=== PATIENT | female | born 1985 | race Caucasian/White ===

== ENCOUNTER 2025-05-11 15:28 | Observation (INO) | payer OTHER, SELFPAY ==
[2025-05-11] VITALS (16 sets, daily range): BP systolic 97–127; BP diastolic 47–85; PULSE 51–110; RESP 12–20; TEMP 36.3–38.8; O2SAT 95–98; BMI 26.3; BMI 26.6
--- NOTE | 2025-05-11 15:51 | US_ITS ---
PROCEDURE: PELVIC (NON ) 05/11/2025 REASON FOR EXAM: CONCERN FOR RETAINED PRODUCTS, ENDOMETRITIS. 3 weeks. No bleeding per patient. TECHNIQUE: PELVIC (NON ). Transabdominal grayscale, color and spectral Doppler pelvic ultrasound. FINDINGS: ENDOMETRIUM: Homogeneous. Normal thickness of 7.3 mm. No abnormal endometrial color Doppler flow. No fluid or air in the endometrial cavity. UTERUS: Anteverted. Normal size and contour measuring 10.9 x 7.5 x 5.0 cm. No fibroid detected. CERVIX: Normal size and contour. RIGHT OVARY: Not visualized. LEFT OVARY: Normal size and appearance measuring 3.2 x 1.9 x 1.3 cm. Normal follicles. Normal blood flow. No adnexal mass. FREE FLUID: No free fluid. US/Pelvic (Non ) IMPRESSION: NORMAL TRANSABDOMINAL PELVIC ULTRASOUND. Reading Location: [id number]
[2025-05-11] MEDS: 0.9% Normal Saline (1000mL) 1,000 ML 999 ML IV (15:52)
--- NOTE | 2025-05-11 15:55 | RAD_ITS ---
PROCEDURE: CHEST 1 VIEW (PORTABLE) 05/11/2025 REASON FOR EXAM: ABDOMINAL PAIN TECHNIQUE: AP portable upright chest. COMPARISON: None. RAD/Chest 1 View (Portable) IMPRESSION: Calcifications adjacent to the right humeral head greater tuberosity most likel y represent calcific tendinosis. No other significant osseous abnormality is seen. Lungs appear clear throughout. No pleural effusion or pneumothorax is seen. No evidence of pneumoperitoneum. The cardiomediastinal silhouette is within the normal range. No evidence of acute cardiopulmonary disease. Reading Location: [place] [id number]
[2025-05-11 16:11] LABS: Hematocrit 45.1 % (37-47); Hemoglobin 15.2 g/dL (12.0-15.0); Immature Granulocytes Count 0.050 X10^3/uL (0.0-0.0); Mean Corp Hgb Conc 33.7 g/dL (32-36); Mean Corpuscular Volume 84.8 fL (81-99); Mean Platelet Vol. 9.9 fl (6.2-12.0); NRBC Flagged by Analyzer 0 % (0-5); POSITIVE MORPHOLOGY YES; Platelet Count 212 K/mm3 (150-450); RBC Distribution Width CV 13.5 % (11.6-14.6); RBC Distribution Width SD 42.2 fl (35.1-43.9); Red Blood Count 5.32 M/mm3 (4.2-5.4); White Blood Count 12.3 K/mm3 (4.4-11.0)
--- NOTE | 2025-05-11 16:20 | CT_ITS ---
PROCEDURE: CT ABDOMEN/PELVIS W IV CONT ONLY 05/11/2025 REASON FOR EXAM: ABDOMINAL PAIN TECHNIQUE: CT ABDOMEN/PELVIS W IV CONT ONLY. Coronal and Sagittal reconstruction series were provided. CONTRAST: Isovue-300 VOLUME: 98 mL One or more dose reduction techniques were used (e.g., Automated exposure control, adjustment of the mA and/or kV according to patient size, use of iterative reconstruction technique. RADIATION DOSE SUMMARY: DLP: 772.3 mGycm COMPARISON: None. FINDINGS: Lung bases: Clear. Liver: No significant abnormality. Subcentimeter hypodense focus in the superior lateral right hepatic lobe is most likely a small benign cyst versus hemangioma. Gallbladder: Cholelithiasis. No pericholecystic inflammatory changes or ductal dilatation. Spleen: Normal in size and morphology. Pancreas: Unremarkable. Adrenals: Unremarkable. Kidneys: Normal, symmetric enhancement. No urolithiasis or hydronephrosis. Bladder: Underdistended, grossly unremarkable. Reproductive Organs: Mildly prominent size of the recently gravid uterus. Unremarkable left ovary.. Asymmetric prominent heterogeneous engorgement of the distal right gonadal vein, most likely reflecting venous congestion. Bowel: Dilated fluid-filled appendix identified in the right lower quadrant, with small dense fecalith at the appendix base, and prominent periappendiceal inflammatory fat stranding consistent with acute appendicitis. There is probable appendiceal microperforation seen on the coronal reformat image 45. No discrete drainable fluid collection/abscess, or pneumoperitoneum appreciated. Prominent fluid-filled segments of mid to distal small bowel without a discrete transition point, likely reactive enteritis versus regional ileitis. Fluid throughout the colon likely reflecting diarrhea, with no wall thickening. Lymph nodes: No suspicious lymph node enlargement. Vasculature: Normal course and caliber of the abdominal aorta and IVC. Superficial venous varicosities noted in the upper medial thigh/perineal soft tissues. Peritoneum / Retroperitoneum: Periappendiceal edema with trace free fluid tracking inferiorly into the pelvis. No drainable fluid collection, organized abscess, or pneumoperitoneum. Bones: No significant abnormality. CT/Abdomen/Pelvis W IV Cont ONLY IMPRESSION: Acute appendicitis, with probable perforation. Associated mild reactive region al distal small-bowel ileus versus enteritis. Fluid in the colon suggesting a diarrheal illness. Findings communicated to provider Connor Euceda 05/11/2025 at 3:45 p.m. 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 Reading Location: [id number]
--- NOTE | 2025-05-11 16:26 | EDS_ITS ---
HPI History of Present Illness Chief Complaint: Abd Pain Narrative Narrative: Chief complaint and HPI: Abdominal pain. History taken by patient as well as . 39-year-old female who is A0 presents for evaluation of abdominal pain. Patient is an Yarsanism female from [place]. She recently had a natural vaginal delivery in [place] approximately 3 weeks ago. No complications per the or delivery. states it was a long delivery for the patient consisting of about 12 hours. No large amount of bleeding. Patient states since the delivery she has had some vaginal bleeding. Denies any vaginal discharge. Yesterday began having lower abdominal pain that has progressively worsened. She has been taking Tylenol. She states she received natural herbs during delivery. She endorses fever, abdominal pain, nausea. Denies any shortness of breath or chest pain. No history of abdominal surgeries. Review of systems: See HPI Medications: As listed on the chart Allergies: As listed on the chart PFSH: Per chart Vital signs: As listed on the chart. Reviewed. Physical exam: Gen: A&O x3, unwell appearing Head: Normocephalic, atraumatic Eyes: No sclera icterus, conjunctiva clear ENT: White patches on her tongue that have been ongoing for several months. Does not scrape off as thrush. Moist mucous membranes Neck: Trachea midline, No JVD CV: Tachycardic, regular rhythm, no murmurs, no peripheral edema Resp: Lungs CTA BL, no w/r/c GI: Abd soft, non-distended, tender to palpation diffusely, + guarding, + rebound Pelvic: Normal external genitalia. + Vaginal bleeding. No obvious purulence. Cervix difficult to find and unable to be examined. Musc: Full ROM, no deformity Skin: Warm, dry Neuro: Alert, oriented, grossly intact, sensation intact Psych: Cooperative, appropriate mood and affect PFSH PFSH Medical History no medical history Home Medications ?Medication ?Instructions ?Recorded ?Last Taken ?Type NK 05/11/25 Unknown History Allergy/AdvReac Type Severity Reaction Status Date / Time No Known Allergies Allergy Verified 05/11/25 17:42 Family History no significant family his Surgical History no surgical history Social History Smoking Status: Never smoker EXAM Physical Exam Const Vital Signs: 05/11/25 15:29 05/11/25 16:27 05/11/25 16:55 Temperature 99.9 F H 99.9 F H 101.8 F H Temperature Source Oral Oral Oral Pulse Rate 110 H 97 Respiratory Rate 20 H 18 Blood Pressure 117/85 H 125/73 H Blood Pressure Mean 95 90 Pulse Ox 98 98 Oxygen Delivery Method Room Air Room Air 05/11/25 17:00 05/11/25 17:47 05/11/25 18:19 Temperature 101.8 F H 101.8 F H 101.8 F H Temperature Source Oral Pulse Rate 98 98 98 Respiratory Rate 18 18 18 Blood Pressure 127/73 H 127/73 H 127/73 H Blood Pressure Mean 91 91 Pulse Ox 98 98 98 Oxygen Delivery Method Room Air Room Air MDM MDM MDM Narrative Medical decision making narrative: 39-year-old female who is A0 presents for evaluation of abdominal pain. Patient is an Y[place]an[place] female from [place]. She recently had a natural vaginal delivery in [place] approximately 3 weeks ago. No complications per the or delivery. states it was a long delivery for the patient consisting of about 12 hours. No large amount of bleeding. Patient states since the delivery she has had some vaginal bleeding. Denies any vaginal discharge. Yesterday began having lower abdominal pain that has progressively worsened. On presentation, patient is unwell appearing. She is tachycardic and almost febrile with a temperature of 99.9. She has severe diffuse tenderness to the abdomen with guarding and rebound. Differential diagnosis includes but is not limited to endometritis, retained products of conception, appendicitis, pancreatitis, colitis, cholecystitis, UTI, pyelonephritis, STI. NS bolus, clindamycin, Unasyn, morphine, Zofran ordered for symptoms. Pelvic exam showed vaginal bleeding, I was unable to identify or visualize the cervix. Abdominal pain workup ordered including CT abdomen pelvis and transvaginal ultrasound. Given the tenderness of her abdomen, I did consult [facility] no doc on-call Dr. Alvarado. We have yet to obtain a call back. Chest x-ray without free air, pneumonia, effusion, cardiomegaly, pneumothorax. Radiology in agreement. CT abdomen pelvis shows acute appendicitis with probable perforation. Associated mild reactive regional distal small bowel ileus versus enteritis. Fluid in the colon suggesting a diarrheal illness. Mildly prominent size of the recent gravid uterus. Unremarkable left ovary. Asymmetric prominent or heterogeneous enlargement of the distal right gonadal vein, most likely reflecting venous congestion. This finding was personally relayed to me by radiology. Patient's symptoms are likely secondary to pancreatitis and not endometritis. The antibiotics patient did receive does cover for appendicitis. General surgery was consulted. I spoke with Dr. Samson to. Plan will be for the OR. He will evaluate the patient. CBC with mild leukocytosis of 12.5. Patient has hemoconcentration of 15.2. CMP relatively unremarkable. Lactic acid unremarkable. Lipase unremarkable. Serum negative. UA positive for blood which patient has vaginal bleeding. Negative for UTI. Pelvis ultrasound shows normal transabdominal pelvic ultrasound. Patient's and were updated of the results for acute appendicitis and the plan for OR. Patient was taken to the OR. Impression: 1. Acute appendicitis 2. Vaginal bleeding with recent vaginal delivery 3 weeks ago Lab Data Labs: Laboratory Results - last 24 hr 05/11/25 05/11/25 15:46 17:25 WBC 12.3 H RBC 5.32 Hgb 15.2 H Hct 45.1 MCV 84.8 MCH 28.6 MCHC 33.7 RDW Std Deviation 42.2 RDW Coeff of [place] 13.5 Plt Count 212 MPV 9.9 Immature Gran % (Auto) 0.400 Neut % (Auto) 86.9 H Lymph % (Auto) 10.6 L [place] % (Auto) 2.0 Eos % (Auto) 0.0 Baso % (Auto) 0.1 Absolute Neuts (auto) 10.7 H Absolute Lymphs (auto) 1.30 Nucleated RBC % 0 Differential Comment SCANNED Platelet Estimate ADEQUATE Sodium 133 Potassium 3.4 Chloride 95 L Carbon Dioxide 23.0 Anion Gap 15 BUN 8 Creatinine 0.72 Est GFR (MDRD) Non-Af 109 BUN/Creatinine Ratio 11.6 Glucose 102 H Lactic Acid 1.2 Calcium 9.1 Total Bilirubin 0.78 AST 17 ALT 15 Alkaline Phosphatase 125 H Total Protein 7.6 Albumin 4.2 Globulin 3.4 Albumin/Globulin Ratio 1.2 Lipase 13 Serum , Qual NEGATIVE Urine Color Straw Urine Clarity Clear Urine pH 7.0 Ur Specific [place] 1.005 Urine Protein 15 H Urine Glucose (UA) Normal Urine Ketones Negative Urine Occult Blood 250 H Urine Nitrite Negative Urine Bilirubin Negative Urine Urobilinogen Normal Ur Leukocyte Esterase Negative Radiography Diagnostic Testing: Clinical Impression(s) from Imaging Studies Pelvis Ultrasound 05/11/25 15:51 IMPRESSION: NORMAL TRANSABDOMINAL PELVIC ULTRASOUND. Reading Location: [facility] [place] Chest X-Ray 05/11/25 15:55 IMPRESSION: Calcifications adjacent to the right humeral head greater tuberosity most likely represent calcific tendinosis. No other significant osseous abnormality is seen. Lungs appear clear throughout. No pleural effusion or pneumothorax is seen. No evidence of pneumoperitoneum. The cardiomediastinal silhouette is within the normal range. No evidence of acute cardiopulmonary disease. Reading Location: [facility] Abdomen/Pelvis CT 05/11/25 16:20 IMPRESSION: Acute appendicitis, with probable perforation. Associated mild reactive regional distal small-bowel ileus versus enteritis. Fluid in the colon suggesting a diarrheal illness. Findings communicated to provider Connor Euceda 05/11/2025 at 3:45 p.m. 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 Reading Location: [facility] Discharge Plan Disposition Disposition: Acute Care Hospital [facility] Discharge Date/Time: 05/11/25 17:35
[2025-05-11 16:38] LABS: AST(SGOT) 17 U/L (<=31); Alanine Aminotransfer ALT/SGPT 15 U/L (<=34); Albumin, Serum 4.2 g/dL (3.5-5.0); Alkaline Phosphatase 125 U/L (35-104); Anion Gap 15 (5-15); BUN 8 mg/dL (4-19); BUN/Creat Ratio 11.6 RATIO (10-20); Calcium,Total 9.1 mg/dL (7.6-11.0); Carbon Dioxide 23.0 mmol/L (21.0-32.0); Chloride 95 mmol/L (98-108); Globulin 3.4 g/dL (2.2-4.2); Glucose 102 mg/dL (70-99); Lipase 13 U/L (13-75); Potassium 3.4 mmol/L (3.3-5.1)
[2025-05-11] MEDS: Ampicillin/Sulbactam 3 GM in 0.9% Normal Saline (100mL MB+) 100 ML IV (16:47)
[2025-05-11 16:58] LABS: Differential Indicated SCAN CRITERIA MET
[2025-05-11 17:14] LABS: Internal QC Validated? YES +Cl - CLEAR BKGD; Pregnancy, Serum, hCG Quali. NEGATIVE Negative; Record Kit Lot#, Serum Preg. 962302
[2025-05-11 17:31] LABS: Mucous, Urine 0 SEEN /hpf (<or=2+)
[2025-05-11 17:35] LABS: Color, Urine Straw (Yellow); Glucose, Dipstick Normal (Normal); Ketone-Dipstick Negative (Negative); Leukocyte Esterase-Dipstick Negative /ul (Negative); Nitrite-Dipstick Negative (Negative); Occult Blood-Urine 250 /ul (Negative); Protein-Dipstick 15 mg/dl (Negative); Specific Gravity, Urine 1.005 (1.002-1.030); Urine Bilirubin Dipstick Negative (Negative)
--- NOTE | 2025-05-11 17:45 | ED.RN ---
Report called to surgery
[2025-05-11] MEDS: Clindamycin 900 MG/50 ML BAG 75 MG IV (17:54)
--- NOTE | 2025-05-11 18:08 | HP.PCM.SX_ITS ---
HPI - General HPI Narrative FAUZIA BANG, is a 39 F who presents with abdominal pain that started yesterday morning. She says it started by feeling cramping and then spread and became worse today. She said she did vomit once yesterday. She does have nausea. She also has a fever today. She reports the pain is in her lower abdomen. PFSH Medical History no medical history Home Medications ?Medication ?Instructions ?Recorded ?Last Taken ?Type NK 05/11/25 Unknown History Allergy/AdvReac Type Severity Reaction Status Date / Time No Known Allergies Allergy Verified 05/11/25 17:42 Family History no significant family his Surgical History no surgical history Social History Smoking Status: Never smoker Vital Signs Vital Signs Vital Signs: 05/11/25 15:29 05/11/25 16:27 05/11/25 16:55 Temperature 99.9 F H 99.9 F H 101.8 F H Temperature Source Oral Oral Oral Pulse Rate 110 H 97 Respiratory Rate 20 H 18 Blood Pressure 117/85 H 125/73 H Blood Pressure Mean 95 90 Pulse Ox 98 98 Oxygen Delivery Method Room Air Room Air 05/11/25 17:00 05/11/25 17:47 Temperature 101.8 F H 101.8 F H Temperature Source Oral Pulse Rate 98 98 Respiratory Rate 18 18 Blood Pressure 127/73 H 127/73 H Blood Pressure Mean 91 91 Pulse Ox 98 98 Oxygen Delivery Method Room Air Physical Exam Const alert and oriented x3 HEENT normocephalic Eyes PERRL Resp normal respiratory effort and normal air movement Cardio regular rate and regular rhythm GI soft to palpation Palpation: tender LLQ and RLQ Extremity normal to inspection Results Lab / Micro Data 05/11/25 15:46 05/11/25 15:46 Labs: Laboratory Results - last 24 hr 05/11/25 15:46: WBC 12.3 H, RBC 5.32, Hgb 15.2 H, Hct 45.1, MCV 84.8, MCH 28.6, MCHC 33.7, RDW Std Deviation 42.2, RDW Coeff of [place]on 13.5, Plt Count 212, MPV 9.9, Immature Gran % (Auto) 0.400, Neut % (Auto) 86.9 H, Lymph % (Auto) 10.6 L, [place] % (Auto) 2.0, Eos % (Auto) 0.0, Baso % (Auto) 0.1, Absolute Neuts (auto) 10.7 H, Absolute Lymphs (auto) 1.30, Nucleated RBC % 0, Sodium 133, Potassium 3.4, Chloride 95 L, Carbon Dioxide 23.0, Anion Gap 15, BUN 8, Creatinine 0.72, Est GFR (MDRD) Non-Af 109, BUN/Creatinine Ratio 11.6, Glucose 102 H, Lactic Acid 1.2, Calcium 9.1, Total Bilirubin 0.78, AST 17, ALT 15, Alkaline Phosphatase 125 H, Total Protein 7.6, Albumin 4.2, Globulin 3.4, Albumin/Globulin Ratio 1.2, Lipase 13, Serum , Qual NEGATIVE 05/11/25 17:25: Urine Color Straw, Urine Clarity Clear, Urine pH 7.0, Ur Specific [place] 1.005, Urine Protein 15 H, Urine Glucose (UA) Normal, Urine Ketones Negative, Urine Occult Blood 250 H, Urine Nitrite Negative, Urine Bilirubin Negative, Urine Urobilinogen Normal, Ur Leukocyte Esterase Negative Micro: Microbiology 05/11/25 16:15 Interface Orders Wet Prep - Final Imaging Radiology Impression Pelvis Ultrasound 05/11/25 15:51 IMPRESSION: NORMAL TRANSABDOMINAL PELVIC ULTRASOUND. Reading Location: [facility] Chest X-Ray 05/11/25 15:55 IMPRESSION: Calcifications adjacent to the right humeral head greater tuberosity most likely represent calcific tendinosis. No other significant osseous abnormality is seen. Lungs appear clear throughout. No pleural effusion or pneumothorax is seen. No evidence of pneumoperitoneum. The cardiomediastinal silhouette is within the normal range. No evidence of acute cardiopulmonary disease. Reading Location: [facility] Abdomen/Pelvis CT 05/11/25 16:20 IMPRESSION: Acute appendicitis, with probable perforation. Associated mild reactive regional distal small-bowel ileus versus enteritis. Fluid in the colon suggesting a diarrheal illness. Findings communicated to provider Connor Euceda 05/11/2025 at 3:45 p.m. 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 Reading Location: [facility] Assessment & Plan Assessment/Plan (1) Acute appendicitis: QUALIFIERS: Acute appendicitis type: unspecified acute appendicitis type Qualified Code(s): K35.80 - Unspecified acute appendicitis PLAN: The patient has abdominal pain with an elevated white count and her CT scan suggests acute appendicitis with possible perforation. I discussed laparoscopic appendectomy with the patient in detail. I discussed the risks including but not limited to bleeding, infection, injury to surrounding organs such as the bladder, bowel, colon. I also discussed the possibility of having to open and perform an ileocecectomy if I am unable to staple below the perforation. I discussed this with her and her in detail. Patient understands the risks and is willing to proceed. Daniel Grimm MD Pager: [facility] [address] [place] [address] [address] [place] [address] Office:
--- NOTE | 2025-05-11 18:17 | PCM.PRE.AN2 ---
ASA Classification* ASA Classification ASA Classification: 2 and E Assessment & Plan Anesthesia* Anesthesia Assessment Anesthesia Assessment: Discussed sedation and/or anesthesia options, risks, benefits, and alternatives with patient/parents/legal guardian/POA. Questions invited. The patient/parents/legal guardian/POA seems to understand and agrees to proceed with anesthesia plan. Reviewed the physical assessment, medical history, allergy history and patient home medications list prior to surgery/procedure/anesthetic and documented any changes. Performed airway and anesthesia risk assessments. Anesthesia Type Anesthesia Type: General History Source History Obtained from:: Patient and Chart Anesthesia Focused Assessment* Temperature: 101.8 F Pulse Rate: 98 Blood Pressure: 127/73 Respiratory Rate: 18 Pulse Ox: 98 Oxygen Delivery Method: Room Air Airway Assessment Mouth opens: >3 cm Mallampati Score: II Teeth Condition: Intact Neck Range of motion (ROM): Full ROM Labs Anesthesia Preop lab: CBC WBC 12.3 K/mm3 (4.4-11.0) H 05/11/25 15:46 05/11/25 RBC 5.32 M/mm3 (4.2-5.4) 05/11/25 15:46 05/11/25 Hgb 15.2 g/dL (12.0-15.0) H 05/11/25 15:46 05/11/25 Hct 45.1 % (37-47) 05/11/25 15:46 05/11/25 Plt Count 212 K/mm3 (150-450) 05/11/25 15:46 05/11/25 CHEMISTRY Potassium 3.4 mmol/L (3.3-5.1) 05/11/25 15:46 05/11/25 Sodium 133 mmol/L (133-145) 05/11/25 15:46 05/11/25 BUN 8 mg/dL (4-19) 05/11/25 15:46 05/11/25 Creatinine 0.72 mg/dL (0.70-1.20) 05/11/25 15:46 05/11/25 Glucose 102 mg/dL (70-99) H 05/11/25 15:46 05/11/25 COAG Pre-Assessment Diagnosis/Proposed Procedure Planned Operative Procedure(s): Lap appendectomy Anesthesia History Anesthesia History - sonar technician: Anesthesia History - sonar technician Hx Hospitalization Any Problems With Anesthesia Cholinesterase deficiency You/Your Family Experience fever (hyperthermia) with Relationship Recent Exposure to Contagious Disease Does patient have nerve stimulator Patient instructed to have device shut off --Does patient have Pacemaker or ICD? When Was Last Pacemaker Check QUESTION #4 FULL TEXT: You/Your Family Experience fever (hyperthermia) with Anesthesia Last Oral Intake Last Oral intake: Last Oral Intake NPO since Meds taken in AM with sips of water? Meds patient instructed to take am of surgery PONV PONV - sonar technician: PONV - sonar technician Female HX of Motion Sickness HX of N/V After Surgery Non-Smoker Duration of Surgery greater than 60 minutes Number of Risk Factors PONV Score Height & Weight Height & Weight: Anesthesia: Height & Weight Height 5 ft 4 in 05/11/25 15:29 Respiratory Assessment Respiratory Assessment - sonar technician: Respiratory Tract Infection Hx - sonar technician Hx Respiratory Tract Infection STOP Sleep Apnea STOP Sleep Apnea - sonar technician: STOP Sleep Apnea - sonar technician Hx Hypertension Hx Sleep Apnea CPAP BIPAP Do you snore loudly (louder than talking or can be heard Do you often feel tired/ fatigued/ sleepy during daytime? Has anyone observed you stop breathing during sleep? STOP Results QUESTION #5 FULL TEXT : Do you snore loudly (louder than talking or can be heard through closed doors)? Tobacco Use History Tobacco Use History - sonar technician: Tobacco Use History - sonar technician Tobacco Use Smoking Status Never smoker 05/11/25 16:13 Hx Tobacco Use Years Smoking Packs Smoked per Day Smoking Cessation Date was within the last 15 years Hx Smoking Cessation Date Hx Smoking Cessation Counseling Hematologic Medial History Hematologic Hx - sonar technician: Hematologic Medical Hx - bulk pigment reducer Hx of Blood Transfusion Hx of Transfusion in last 3 Months Date of Last Transfusion (if within last 3 months) Ever experience any problems with transfusion(s)? Specify any problems Hx of Preganancy in last 3 Months Nurse Filling Out Transfusion & Questions: Date: Time: Patient unable to answer at this time (ie. confused, unrespo /Reproduction History /Reproductive History - sonar technician: /Reproductive Hx- sonar technician Hx Now Gestational Age (in weeks): EDC: Hx Hx Para Hx Section SAB Yes 05/11/25 15:29 PFSH Medical History no medical history Home Medications ?Medication ?Instructions ?Recorded ?Last Taken ?Type NK 05/11/25 Unknown History Allergy/AdvReac Type Severity Reaction Status Date / Time No Known Allergies Allergy Verified 05/11/25 17:42 Family History no significant family his Surgical History no surgical history Social History Smoking Status: Never smoker Review of Systems (Anesthesia) ROS Narrative System reviewed and no additional complaints, except as documented.
--- NOTE | 2025-05-11 18:20 | APP_PTH ---
PATIENT: FAUZIA BANG LOC: [facility] U#:[id number] AGE/SX: 39/F ROOM: [facility] [place] RE05/11/[address]: Dr. Daniel Grimm MD : 1985 BED: 1 DIS: 05/13/2025 SPEC #: [id number] RECD: 05/12/25 07:37 STATUS: PETE REKamila #: [id number] UDAY: 05/11/25 18:[address]: Daniel Grimm DEPT: SURGICAL PATHOLOGY RECD BY: Kel Hylton ENTERED: 05/12/25 12:14 SP TYPE: APPENDIX OT DR: No Primary Care Phys Tissues: A - Appendix, NOS Procedures: Surgery Specimen Level III HEADER OPERATION: Laparoscopic appendectomy PRE-OP DIAGNOSIS: Acute appendicitis TISSUE SUBMITTED: A- Appendix MICROSCOPIC DIAGNOSIS A. Appendix, appendectomy: MICROSCOPIC DESCRIPTION Slides are reviewed. GROSS DESCRIPTION A. Received in formalin labeled with the patient's name and date of . Designated as appendix is a 3.7 x 0.9 cm pink-red to contreras appendix with up to 2.2 cm of attached, congested mesoappendix. There is patchy Burnis exudate involving the serosa and underlying mesoappendix in addition to a 0.2 cm full-thickness defect (suspicious for perforation) located 1.1 cm from the margin; the defect is inked green. The margin is inked black and shaved. Sectioning reveals pink-red to contreras mucosa, extending to the resection margin. The distal tip is markedly fibrotic however, no definitive lesions are grossly appreciated. Enameler sections are submitted in 2 cassettes, representing >50% of the specimen, as follows: A1: Distal tipA2: Margin, inked defect and cross-section [place] 05/12/2025 CPT:[id number]
--- NOTE | 2025-05-11 18:20 | APP_PTH ---
PATIENT: FAUZIA BANG LOC: MS3 U#:[id number] AGE/SX: 39/F ROOM: [facility] [place] RE05/11/[address]: Dr. Daniel Grimm MD : 1985 BED: 1 DIS: 05/13/2025 SPEC #: [id number] RECD: 05/12/25 07:37 STATUS: PETE REKamila #: [id number] UDAY: 05/11/25 18:[address]: Daniel Grimm DEPT: SURGICAL PATHOLOGY RECD BY: Kel Hylton ENTERED: 05/12/25 12:14 SP TYPE: APPENDIX OTHR DR: No Primary Care Phys Tissues: A - Appendix, NOS Procedures: Surgery Specimen Level III HEADER OPERATION: Laparoscopic appendectomy PRE-OP DIAGNOSIS: Acute appendicitis TISSUE SUBMITTED: A- Appendix MICROSCOPIC DIAGNOSIS A. 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 Standard(s): AJCC-UICC 9 Procedure? ___ Appendectomy? TUMOR? Tumor Site? ___ Distal half of appendix? Histologic Type ___ Adenocarcinoma? Histologic Grade ___ G1, well differentiated?(50% or greater is gland forming) Tumor Size? ___ Greatest dimension in Centimeters (cm): 0.7 x 0.7 cm Tumor Extent?(Note I) (select all that apply) ___ Tumor invades muscularis propria? Lymphatic and / or Vascular Invasion?(Note F) ___ Not identified? Perineural Invasion?(Note G) ___ Not identified? MARGINS?(Note H) Margin Status for Invasive Carcinoma? ___ All margins negative for invasive carcinoma? +Distance from Invasive Carcinoma to Closest Mesenteric Margin? ___ Greater than 1 cm? +Margin Comment: The exact measurement to the mesenteric margin cannot be determined because the mesoappendix was trimmed away REGIONAL LYMPH NODES? Regional Lymph Node Status? ___ Not applicable (no regional lymph nodes submitted or found)? DISTANT METASTASIS? Distant Site(s) Involved, if applicable? ___ Not applicable? pTNM CLASSIFICATION (AJCC 9th Version)?(Note I): pT2 pN not assigned (no nodes submitted or found) pReporting of pT, pN, and (when applicable) pM categories is based on information available to the pathologist at the time the report is issued. As per the AJCC (Chapter 1, 8th Ed.) it is the managing physician's responsibility to establish the final pathologic stage based upon all pertinent information, including but potentially not limited to this pathology report.? Modified Classification (required only if applicable) (select all that apply) ___ Not applicable? pT Category? ___ pT not assigned (cannot be determined based on available pathological information)? ___ pT0: No evidence of primary tumor? ___ pTis: Carcinoma in situ (intramucosal carcinoma; invasion of the lamina propria or extension into but not through the muscularis mucosae)? # pTis LAMN is applicable only to LAMN. High-grade appendiceal mucinous neoplasms (HAMN) are staged similar to mucinous adenocarcinoma, even though robust data on HAMN are lacking.? ___ pTis (LAMN): Low-grade appendiceal mucinous neoplasm confined to the muscularis propria; Acellular mucin or mucinous epithelium may invade into the muscularis propria. (T1 and T2 are not applicable to LAMN; Acellular mucin or mucinous epithelium that extends into the subserosa or serosa should be classified as T3 or T4a, respectively.)#? ___ pT1: Tumor invades the submucosa (through the muscularis mucosa but not into the muscularis propria)? ___ pT2: Tumor invades the muscularis propria? ___ pT3: Tumor invades through the muscularis propria into the subserosa or the mesoappendix? pT4: Tumor invades the visceral peritoneum, including the acellular mucin or mucinous epithelium involving the serosa of the appendix or mesoappendix, and / or directly invades adjacent organs or structures? ___ pT4a: Tumor invades through the visceral peritoneum, including the acellular mucin or mucinous epithelium involving the serosa of the appendix or serosa of the mesoappendix? ## The text in parentheses is not applicable to pT determination. A tumor grossly adherent to other organs or structures is classified as cT4b; however, if no tumor is identified on pathological examination of the adhesion, the T category assigned is based on the depth of wall invasion observed on microscopic examination (typically pT1-3).? ___ pT4b: Tumor directly invades (or adheres to##) adjacent organs or structures? ___ pT4 (subcategory cannot be determined)? pN Category? ___ pN not assigned (no nodes submitted or found)? ___ pN not assigned (cannot be determined based on available pathological information)? ___ pN0: No tumor involvement of regional lymph node(s)? pN1: Tumor involvement of one to three regional lymph nodes (tumor in lymph node measuring greater than or equal to 0.2 mm) or any number of tumor deposits is present with no tumor involvement in all identifiable lymph nodes? ___ pN1a: Tumor involvement of one regional lymph node? ___ pN1b: Tumor involvement of two or three regional lymph nodes? ___ pN1c: No tumor involvement of regional lymph nodes, but there are tumor deposits in the subserosa or mesentery? ___ pN1 (subcategory cannot be determined)? ___ pN2: Tumor involvement of four or more regional lymph nodes? pM Category (required only if confirmed pathologically)#? # For specimens containing acellular mucin without identifiable tumor cells, efforts should be made to obtain additional tissue for thorough histologic examination to evaluate for cellularity.? ___ Not applicable - pM cannot be determined from the submitted specimen(s)? pM1: Microscopic confirmation of distant metastasis? ___ pM1a: Intraperitoneal acellular mucin, without identifiable tumor cells in the disseminated peritoneal mucinous deposits? ___ pM1b: Intraperitoneal metastasis only, including peritoneal mucinous deposits containing tumor cells? ___ pM1c: Microscopic confirmation of metastasis to sites other than peritoneum? ___ pM1 (subcategory cannot be determined)? ADDITIONAL FINDINGS?(Note J) +Additional Findings?(select all that apply) ___ Appendicitis (gangrenous) MICROSCOPIC DESCRIPTION Slides are reviewed. GROSS DESCRIPTION A. Received in formalin labeled with the patient's name and date of . Designated as appendix is a 3.7 x 0.9 cm pink-red to contreras appendix with up to 2.2 cm of attached, congested mesoappendix. There is patchy Burnis exudate involving the serosa and underlying mesoappendix in addition to a 0.2 cm full-thickness defect (suspicious for perforation) located 1.1 cm from the margin; the defect is inked green. The margin is inked black and shaved. Sectioning reveals pink-red to contreras mucosa, extending to the resection margin. The distal tip is markedly fibrotic however, no definitive lesions are grossly appreciated. Chemical Technician sections are submitted in 2 cassettes, representing >50% of the specimen, as follows: A1: Distal tipA2: Margin, inked defect and cross-section NV 05/12/2025 CPT:[id number] ADDENDUM ADDENDUM ADDENDUM ADDENDUM ADDENDUM ADDENDUM ADDENDUM ADDENDUM ADDENDUM ADDENDUM 06/08/2025 09:06 ADDENDUM 06/08/2025 09:06 ADDENDUM 06/08/2025 09:06 ADDENDUM 06/08/2025 09:06 ADDENDUM 06/08/2025 09:06 This addendum is added to incorporate an outside pathology consultation report. The case was examined at [facility] by Dr. Morrison (#[id number]) and the following diagnosis was rendered. A. Appendix, appendectomy: Well-differentiated neuroendocrine tumor, grade 1 of 3. Please see complete above mentioned consultation report in EMR
[2025-05-11] MEDS: Midazolam 2 MG/2 ML Syringe IV (19:14)
[2025-05-11] MEDS: fentaNYL 100 MCG/2 ML Ampul IV (19:14)
[2025-05-11 19:26] LABS: Differential Comment SCANNED
[2025-05-11 19:35] LABS: Red Blood Cells-Urine 5-10 SEEN /hpf (0-5); Squamous Epithelial Cells - UA 0-5 SEEN /hpf (5-10)
[2025-05-11] MEDS: Bupiv/Epi 0.25% 30 ML Vial (19:35)
--- NOTE | 2025-05-11 19:58 | PCM.OPRPT ---
Operative Report (Standard) Operative Information Date of Procedure: 05/11/25 Pre-Operative Diagnosis: Acute appendicitis Post-Operative Diagnosis: Perforated acute appendicitis Surgery/Procedure Performed: Laparoscopic appendectomy stone product fabricator: No Type of Anesthesia: General/Regional RN Documented Start/Stop Times: Operation Date: 05/11/25 18:20 Case Time Into Pre-Op 05/11/25 17:41 Anesthesia Start 05/11/25 18:55 Into Room 05/11/25 18:55 Out of Pre-Op 05/11/25 18:56 Procedure Start 05/11/25 19:21 Procedure End 05/11/25 19:46 Anesthesia End 05/11/25 19:56 Out of Room 05/11/25 19:56 Procedure Start Time: 19:21 Procedure Stop Time: 19:46 Select all DRAINS/GRAFTS/IMPLANTS that apply: Drains Drain details: DEISI to bulb suction Estimated Blood Loss: 5 Specimen collected: Yes Description of specimen(s) removed: Appendix Description of surgery: The patient was brought into the operating room and general anesthesia was induced. The left arm was tucked and the abdomen was prepped and draped in usual sterile fashion. A small midline incision was made superior to the umbilicus and deepened to the level of the fascia. The fascia was elevated and incised. The peritoneum was also elevated and incised. A finger sweep was performed and a balloon trocar was placed into the abdomen and inflated. The abdomen was insufflated to 15 mmHg and the camera was inserted and the abdomen was inspected for any injuries upon entering the abdomen. There were none. The patient was placed in Trendelenburg position and a 5 mm ports placed in the left lower quadrant and suprapubic areas under direct visualization. Next using atraumatic bowel graspers the appendix was identified. The appendix was grasped and elevated and Enseal was used to take down the mesoappendix. There was a perforation in the mid portion of the appendix. A stapler was used to come across the base of the appendix. The appendix was then placed in Endo Catch bag and removed through the umbilical incision. The staple line was inspected and found to be hemostatic and intact. The abdomen had purulent material and it was irrigated and suctioned dry and then a 15 Citizen [place] round drain was placed through the left lower quadrant incision and the drain was placed into the pelvis. It was sutured in place using 3-0 nylon suture. The 2 5 mm ports are removed under direct visualization. The balloon trocar was deflated and removed and all the air was removed from the abdomen. The umbilical incision fascia was closed with an 0 Vicryl [id number] suture. The incisions were then irrigated with saline and dried. Local anesthetic was injected into the incision sites. The skin incisions were then closed with interrupted 4-0 Monocryl suture and Steri-Strips. Bandages were applied and the patient was awoken and taken to PACU in stable condition. Patient tolerated the procedure well. Surgical Findings: Perforated appendicitis with a small hole in the midportion of the appendix Complications Complications: No Admit VTE Documentation VTE Mechan Device Prophylaxis: SCD's
--- NOTE | 2025-05-11 20:08 | PCM.POST.ANE ---
Anesthesia: Postop Eval I Current Vital Signs Temperature: 97.3 F Pulse Rate: 92 Blood Pressure: 106/71 Respiratory Rate: 16 Pulse Ox: 98 Oxygen Delivery Method: Room Air Assessment Airway patent: Yes Spontaneous unlabored respirations: Yes Mental status: Awake and Calm nausea: No Vomiting: No Anesthesia Complication: No Fluid Hydration Crystalloid volume administer (ml): 900 Total IV fluid infused: 900 Progress Note Anesthesia document: Postop Eval 1 completed: Yes
--- NOTE | 2025-05-11 20:18 | PCM.POSTANE2 ---
Anesthesia Postop Eval I Sum Postop Eval Completion status Anesthesia document: Postop Eval 1 completed: Yes Anesthesia Postop Eval I Summary Anesthesia Postop Eval I Summary: Anesthesia Postop Eval I: Assessment Summary Airway patent Yes 05/11/25 20:09 Spontaneous unlabored Yes 05/11/25 20:09 respirations Mental status Awake,Calm 05/11/25 20:09 nausea No 05/11/25 20:09 Vomiting No 05/11/25 20:09 Anesthesia Postop Eval I: Fluid Summary Crystalloid volume administer 900 05/11/25 20:09 (ml) Colloids volume administered ( ml) Blood Product volume administered (ml) Total IV fluid infused 900 05/11/25 20:09 Anesthesia Postop Eval I: Summary Notes Anesthesia Complication No 05/11/25 20:09 Anesthesia Complication Comment: Post-operative progress note Anesthesia: Postop Eval II Evaluation Mental status: Awake and Calm Pain Level: 1 nausea: No Vomiting: No Complications Anesthesia Complication: No
[2025-05-11] MEDS: 0.9% Normal Saline (1000mL) 1,000 ML 100 ML IV (20:24)
[2025-05-11] MEDS: Piperacil/Tazobactam 3.375 GM in 0.9% Normal Saline (50mL MB+) 50 ML IV (22:18)
[2025-05-12] VITALS (8 sets, daily range): BP systolic 102–134; BP diastolic 53–73; PULSE 45–66; RESP 16–18; TEMP 36.4–37.1; O2SAT 97–100
[2025-05-12] MEDS: 0.9% Normal Saline (1000mL) 1,000 ML 100 ML IV ×2 (04:54→14:22)
[2025-05-12] MEDS: Piperacil/Tazobactam 3.375 GM in 0.9% Normal Saline (50mL MB+) 50 ML IV ×3 (06:05→21:43)
[2025-05-12] MEDS: 0.9% Saline Lock 10 ML Syringe IV ×2 (06:11→21:49)
[2025-05-12 07:11] LABS: Hematocrit 39.1 % (37-47); Hemoglobin 13.0 g/dL (12.0-15.0); Immature Granulocytes Count 0.040 X10^3/uL (0.0-0.0); Mean Corp Hgb Conc 33.2 g/dL (32-36); Mean Corpuscular Volume 86.5 fL (81-99); Mean Platelet Vol. 10.4 fl (6.2-12.0); NRBC Flagged by Analyzer 0 % (0-5); Platelet Count 186 K/mm3 (150-450); RBC Distribution Width CV 14.0 % (11.6-14.6); RBC Distribution Width SD 44.5 fl (35.1-43.9); Red Blood Count 4.52 M/mm3 (4.2-5.4); White Blood Count 10.7 K/mm3 (4.4-11.0)
--- NOTE | 2025-05-12 07:32 | PN.SURG_ITS ---
Subjective Subjective Patient reports no nausea or vomiting overnight and she reports that her pain is better than yesterday. Objective Data Objective Data Vital Signs: Vital Signs Temp Pulse Resp BP Pulse Ox O2 Del Method 98.2 F 51 L 18 102/54 L 98 Room Air 05/12/25 05:53 05/12/25 05:53 05/12/25 05:53 05/12/25 05:53 05/12/25 05:53 05/12/25 05:53 Oxygen Delivery Method Room Air Weight: 154 lb 15.759 oz Body Mass Index (BMI) 26.6 Intake & Output: Intake and Output for Last 24 Hours 05/10/25 05/11/25 05/12/25 23:59 23:59 23:59 Intake Total 1400 / 1400 1250 / 1250 Output Total 478 / 478 200 / 200 Balance 922 / 922 1050 / 1050 Lab / Micro Data 05/12/25 06:31 05/11/25 15:46 Labs: Laboratory Results - last 24 hr 05/11/25 15:46: WBC 12.3 H, RBC 5.32, Hgb 15.2 H, Hct 45.1, MCV 84.8, MCH 28.6, MCHC 33.7, RDW Std Deviation 42.2, RDW Coeff of Fallon 13.5, Plt Count 212, MPV 9.9, Immature Gran % (Auto) 0.400, Neut % (Auto) 86.9 H, Lymph % (Auto) 10.6 L, Bowie % (Auto) 2.0, Eos % (Auto) 0.0, Baso % (Auto) 0.1, Absolute Neuts (auto) 10.7 H, Absolute Lymphs (auto) 1.30, Nucleated RBC % 0, Differential Comment SCANNED, Platelet Estimate ADEQUATE, Sodium 133, Potassium 3.4, Chloride 95 L, Carbon Dioxide 23.0, Anion Gap 15, BUN 8, Creatinine 0.72, Est GFR (MDRD) Non-Af 109, BUN/Creatinine Ratio 11.6, Glucose 102 H, Lactic Acid 1.2, Calcium 9.1, Total Bilirubin 0.78, AST 17, ALT 15, Alkaline Phosphatase 125 H, Total Protein 7.6, Albumin 4.2, Globulin 3.4, Albumin/Globulin Ratio 1.2, Lipase 13, Serum , Qual NEGATIVE 05/11/25 17:25: Urine Color Straw, Urine Clarity Clear, Urine pH 7.0, Ur Specific Hallowell 1.005, Urine Protein 15 H, Urine Glucose (UA) Normal, Urine Ketones Negative, Urine Occult Blood 250 H, Urine Nitrite Negative, Urine Bilirubin Negative, Urine Urobilinogen Normal, Ur Leukocyte Esterase Negative, Urine RBC 5-10 SEEN, Urine WBC 0-5 SEEN, Ur Squamous Epith Cells 0-5 SEEN, Urine Bacteria 0 SEEN, Urine Mucus 0 SEEN 05/12/25 06:31: WBC 10.7, RBC 4.52, Hgb 13.0, Hct 39.1, MCV 86.5, MCH 28.8, MCHC 33.2, RDW Std Deviation 44.5 H, RDW Coeff of Fallon 14.0, Plt Count 186, MPV 10.4, Immature Gran % (Auto) 0.400, Neut % (Auto) 88.2 H, Lymph % (Auto) 8.8 L, Bowie % (Auto) 2.5, Eos % (Auto) 0.0, Baso % (Auto) 0.1, Absolute Neuts (auto) 9.5 H, Absolute Lymphs (auto) 0.94, Nucleated RBC % 0 Micro: Microbiology 05/11/25 16:15 Genital vaginal Chlamydia/Neisseria (PCR) - Final 05/11/25 16:15 Interface Orders Wet Prep - Final Radiography Diagnostic Testing: Radiology Impression Pelvis Ultrasound 05/11/25 15:51 IMPRESSION: NORMAL TRANSABDOMINAL PELVIC ULTRASOUND. Reading Location: [facility] Chest X-Ray 05/11/25 15:55 IMPRESSION: Calcifications adjacent to the right humeral head greater tuberosity most likely represent calcific tendinosis. No other significant osseous abnormality is seen. Lungs appear clear throughout. No pleural effusion or pneumothorax is seen. No evidence of pneumoperitoneum. The cardiomediastinal silhouette is within the normal range. No evidence of acute cardiopulmonary disease. Reading Location: [facility] Abdomen/Pelvis CT 05/11/25 16:20 IMPRESSION: Acute appendicitis, with probable perforation. Associated mild reactive regional distal small-bowel ileus versus enteritis. Fluid in the colon suggesting a diarrheal illness. Findings communicated to provider Connor Euceda 05/11/2025 at 3:45 p.m. BODY STRAIGHTENER. Reading Location: [id number] Physical Exam Const oriented x3 Resp normal respiratory effort GI soft to palpation Palpation: tender Assessment & Plan Assessment/Plan (1) Acute appendicitis: QUALIFIERS: Acute appendicitis type: unspecified acute appendicitis type Qualified Code(s): K35.80 - Unspecified acute appendicitis PLAN: The patient is doing well after laparoscopic appendectomy. Her white count is returned to normal. Her drain is serosanguineous. We will slowly advance her diet and encourage ambulation. If she is doing well this evening I will discharge her home versus tomorrow. Daniel Grimm MD Pager: [facility] [address] [place] [address] [address] [place] [address] Office:
[2025-05-12 07:43] LABS: Anion Gap 12 (5-15); BUN 10 mg/dL (4-19); BUN/Creat Ratio 16.1 RATIO (10-20); Calcium,Total 8.7 mg/dL (7.6-11.0); Carbon Dioxide 22.2 mmol/L (21.0-32.0); Chloride 105 mmol/L (98-108); Estimated Creatinine Clearance 119.12 ml/min (50-250); Glucose 138 mg/dL (70-99); Potassium 4.0 mmol/L (3.3-5.1)
[2025-05-12] MEDS: NYSTATIN 500,000 UNIT/5 ML UDC 500000 UNIT PO ×3 (11:53→21:44)
[2025-05-13 01:52] VITALS: BP 146/77; PULSE 56; RESP 18; TEMP 36.6; O2SAT 99
[2025-05-13] MEDS: 0.9% Normal Saline (1000mL) 1,000 ML 100 ML IV (02:09)
[2025-05-13] MEDS: Piperacil/Tazobactam 3.375 GM in 0.9% Normal Saline (50mL MB+) 50 ML IV (06:02)
[2025-05-13] MEDS: 0.9% Saline Lock 10 ML Syringe IV (06:02)
[2025-05-13 06:09] VITALS: BP 142/76; PULSE 76; RESP 18; TEMP 36.6; O2SAT 97
--- NOTE | 2025-05-13 09:40 | PCM.DC.SUM ---
Providers Date of Admission: 05/13/25 Primary Care Physician: No Primary Care Phys Reason For Visit: ACUTE APPENDICITIS Diagnosis Discharge Diagnosis (1) Acute appendicitis: Status: Acute Code(s): K35.80 - Unspecified acute appendicitis Qualifiers: Acute appendicitis type: unspecified acute appendicitis type Qualified Code(s): K35.80 - Unspecified acute appendicitis Plan: The patient is doing well after laparoscopic appendectomy. Her white count is returned to normal. Her drain is serosanguineous. We will slowly advance her diet and encourage ambulation. If she is doing well this evening I will discharge her home versus tomorrow. Daniel Grimm MD Pager: [facility] [address] [place] [address], [address] [place] [address] Office: Medications at Discharge Home Medications amoxicillin 500 mg-potassium clavulanate 125 mg tablet (Augmentin) 1 tab PO BID 7 days #14 tabs 05/13/25 oxycodone 5 mg tablet 5 - 10 mg (1 - 2 x 5 mg) PO Q4H PRN PRN Pain Score 4-10 5 days #14 tabs 05/13/25 Hospital Course Operations appendectomy Procedures None Summary of Care Provided Hospital Course: The patient was admitted with acute appendicitis and taken for surgery. Surgery revealed perforation of the midportion of the appendix. There was purulent material throughout the abdomen. It was suctioned dry and a drain was placed. Patient did well after appendectomy. She was kept for 2 days postoperatively and then once tolerating a diet she was discharged home. Physical Exam Const oriented x3 and no apparent distress Resp normal respiratory effort GI soft to palpation Palpation: tender Weight / BMI Weight Weight: 154 lb 15.759 oz Body Mass Index (BMI) 26.6 ABG / Lab / Microbiology Data 05/12/25 06:31 05/12/25 06:31 Microbiology: Microbiology 05/11/25 17:25 Urine, Clean Catch Urine Culture - Final Mixed Gram Positive Organisms 05/11/25 16:15 Genital vaginal Gram Stain - Final 05/11/25 16:15 Genital vaginal Wound Culture - Final Escherichia coli 05/11/25 16:15 Genital vaginal Chlamydia/Neisseria (PCR) - Final 05/11/25 16:15 Interface Orders Wet Prep - Final D/C Instructions Discharge Activity: May Not Drive (for 2-3 days or while taking narcotic pain medications.) May shower in (days): 1 Lifting Restrictions: 20 lbs for 2 weeks Call your doctor if your incision/area has: Continuous Slow Oozing, Sudden Increased Bleeding, Increased Pain/ Swelling, Increased Redness and Foul Smelling Discharge Call your doctor if you observe: Fever of 101 or Higher Suture Line Care: Avoid Pulling/Pushing and Avoid Pinching/Bending Remove Dressing in: 2 days Cleanse incision/area with: Soap & Water Additional Dressing/Incision Instructions: Keep dressing clean and dry. Change or remove dressing in 2 days. Leave steri strips for 1 week. May protect with a gauze bandaid. DC O2, CPAP, BIPAP Needs Home O2 Discharge instructions: No Please Follow Up With: Daniel Grimm MD When: Please call to schedule 2 week follow up appointment. [phone] Meaningful Use Info Meaningful Use Meaningful Use Diagnoses (Choose all that apply): None applicable Discharge Plan Admission Admit Date/Time: 05/13/25 07:16 Attending Provider: Daniel Grimm Primary Care Provider: Care Physician,No Primary Discharge Orders/Prescriptions Prescriptions: New oxycodone 5 mg Tablet 5 - 10 mg PO Q4H PRN PRN (Reason: Pain Score 4-10) 5 Days Qty: 14 0RF amoxicillin-pot clavulanate [Augmentin] 500-125 mg tablet 1 tab PO BID 7 Days Qty: 14 0RF Referrals / Follow Up: Care Physician,No Primary [Primary Care Provider] - Disposition Disposition (needs filled in before D/C Order can be placed): Home, Self Care
[2025-05-13 10:00] VITALS: BP 130/72; PULSE 47; RESP 16; TEMP 36.7; O2SAT 97
[2025-05-13] MEDS: NYSTATIN 500,000 UNIT/5 ML UDC 500000 UNIT PO (10:17)
[2025-05-13 10:31] VITALS: PULSE 48
--- NOTE | 2025-05-13 11:13 | CASEMGMT ---
VIKI SARAH Assessment Pt was recently switched to inpatient status. 6-Click score is 17. Face to Face with patient for initial transition planning/care coordination assessment. VIKI SARAH introduced self and role at [facility], pt voices understanding. Pt is A&Ox4 and is resting comfortably in bed and is calm. Pt's at bedside. Care providers, pharmacy, and demographics verified. Admitting dx: Acute Appendicitis LACE Strata: 1 PCP: Pt is from [place] and states that she has a doctor there. Pt states that her father recently passed so she is currently residing in [place] with her family. Pt was given a provider list due to the pt being unsure when she will be returning to [place] Specialists: Denies Preferred Pharmacy: [facility] Insurance: [employer] Prescription Benefit: Yes LNOK: Meli Moreland () Living Arrangements: Pt will be discharging to [place] with her mother, , and further family in a 2 story home with 2 steps to enter ADLs/IADLs: Pt states that she is normally indep and that he will be able to care for the pt during recovery Transportation: Hires drivers. Pt states that he plans to hire a pizza driver today and denies needs or concerns DME: Pt reports that she has access to a FWW and denies any DME needs HHC/SNF: Denies Pt?s goal: Home Plan: Home today with family support and follow up with Mercedes BRINK) next Saturday as scheduled. Pt states that she feels safe with this plan and denies further questions or concerns. Lisa Moreland RN, CM
[2025-05-13 14:15] VITALS: BP 150/69; PULSE 53; RESP 16; TEMP 36.3; O2SAT 95
== END 2025-05-13 14:33 | disposition home or self-care (01) ==
LOC: ED 17:11 → SDC 17:28 → ACINP 17:32 → SDC 21:16 → MS3 21:16
PROVIDERS: Admitting Provider Surgery; Emergency Provider Surgery; Visit Provider Surgery
PROC: 0DTJ4ZZ Resection of Appendix, Percutaneous Endoscopic Approach (ICD-10-PCS; CPT 44970; principal; 2025-05-11 18:00)
DX: O99.63 Diseases of the digestive system complicating the puerperium (principal); K35.80 Unspecified acute appendicitis
CPT/HCPCS: 44970; 00840; 36415; 71045; 74177; 76856; 80048; 80053; 81001; 83605; 83690; 84703; 85025; 87040; 87070; 87077; 87086; 87088; 87186; 87205; 87210; 87491; 87591; 88304; 94668; 96365; 96366; 96367; 96375; 96376; 97802; 99221; 99283; Q9967; A4216; G0378; J0295; J2405